=== PATIENT | male | born 1960 | race African-American/Black ===

== ENCOUNTER 2016-12-13 20:14 | Emergency (ER) | payer BC ==
[2016-12-13 21:11] VITALS: BP 124/86
--- NOTE | 2016-12-13 21:35 | UC ---
Complaint Male HPI - HPI Summary HPI Summary: Patient has a hx of kidney stones, currently having some left flank pain, hx of enlarged prostate, is complaining of pain with urination, not really buring just uncomfortable, feels bloated and is very sore in the lower abdominal region. - History of Current Complaint Chief Complaint: UCGU Stated Complaint: BACK PAIN, AND PAINFUL URINATION Time Seen by Provider: 12/13/16 21:14 Hx Obtained From: Patient Onset/Duration: Sudden Onset, Lasting Days Timing: Constant Severity Initially: Mild Severity Currently: Moderate Location: Suprapubic Character: Constant Pressure Aggravating Factor(s): Voiding, Palpation Alleviating Factor(s): Nothing Associated Signs And Symptoms: Positive: Back Pain, Fever, Hematuria, Dysuria - Risk Factors Testicular Torsion: Negative - Allergies/Home Medications Allergies/Adverse Reactions: Allergies Allergy/AdvReac Type Severity Reaction Status Date / Time No Known Allergies Allergy Verified 02/15/15 11:58 Home Medications: Home Medications Ibuprofen [Advil] 400 mg PO 12/13/16 [History] PMH/Surg Hx/FS Hx/Imm Hx Previously Healthy: Yes Endocrine History Of: Denies: Diabetes, Thyroid Disease Cardiovascular History Of: Denies: Cardiac Disorders, Hypertension Respiratory History Of: Reports: Asthma - exercise induced Denies: COPD GI/ History Of: Reports: Kidney Stones - 3/4 YRS AGO DX WITH K-STONES Denies: Ulcer, Renal Disease Cancer History Of: Denies: Prostate Cancer - Surgical History Surgical History: Yes Surgery Procedure, Year, and Place: facial fracture repaired- cheek - Family History Known Family History: Positive: Cardiac Disease, Hypertension, Diabetes, Other - prostate and colon CA - Social History Alcohol Use: None Substance Use Type: None Smoking Status (MU): Never Smoked Tobacco - Immunization History Most Recent Tetanus Shot: 20 years ago Review of Systems Constitutional: Fever, Chills, Fatigue Skin: Negative Eyes: Negative ENT: Negative Respiratory: Negative Cardiovascular: Negative Gastrointestinal: Abdominal Pain Genitourinary: Dysuria, Hematuria, Frequency Motor: Negative Neurovascular: Negative Musculoskeletal: Negative Neurological: Negative Psychological: Negative All Other Systems Reviewed And Are Negative: Yes Physical Exam Triage Information Reviewed: Yes Appearance: Well-Nourished, Ill-Appearing, Pain Distress Vital Signs: Initial Vital Signs Temp 99.1 F 12/13/16 21:07 Pulse 60 12/13/16 21:07 Resp 18 12/13/16 21:07 BP 124/86 12/13/16 21:07 Pulse Ox 100 12/13/16 21:07 Vital Signs Reviewed: Yes Eye Exam: Normal Eyes: Positive: Conjunctiva Clear ENT Exam: Normal ENT: Positive: Hearing grossly normal, Pharynx normal, Pharyngeal erythema, TMs normal Dental Exam: Normal Neck exam: Normal Neck: Positive: Supple, Nontender, No Lymphadenopathy Respiratory Exam: Normal Respiratory: Positive: Chest non-tender, Lungs clear, Normal breath sounds Cardiovascular Exam: Normal Cardiovascular: Positive: RRR, No Murmur, Pulses Normal Abdominal Exam: Other Abdomen Description: Positive: No Organomegaly, CVA Tenderness (L) - positive, Distended, Other: - Left upper and lower quad tenderness Bowel Sounds: Positive: Hypoactive Musculoskeletal Exam: Normal Musculoskeletal: Positive: Strength Intact, ROM Intact, No Edema Neurological Exam: Normal Neurological: Positive: Alert, Muscle Tone Normal Psychological Exam: Normal Skin Exam: Normal Complaint Male Course/Dx - Course Course Of Treatment: hx obtained, exam performed, mes reviewed, UA obtained, culture sent, rectal exam performed, prostate palpated and painful on exam. levaquin and toradol given, for flank pain. meds repscribed. recommend follow up with his PCP and urologist. - Differential Dx/Diagnosis Differential Diagnosis/HQI/PQRI: Cancer, Phimosis, Priaprism, Prostatitis, Testicular Torsion, Ureteral Calculi, Urinary Tract Infection Provider Diagnoses: prostatitis. abdominal pain. flank pain Discharge - Discharge Plan Condition: Stable Disposition: HOME Prescriptions: Levofloxacin TAB* [Levaquin TAB*] 500 mg PO DAILY #6 tab traMADol TAB* [Ultram*] 25 mg PO Q8H PRN #9 tab MDD 3 tabs PRN Reason: Pain Patient Education Materials: Prostatitis (ED) Referrals: Arielle Menjivar MD [Primary Care Provider] - Additional Instructions: 1. take the medication as prescribed, increase fluid intake 2. follow up with your primary provider in the next week. Urine culture was sent, we will call you if medications need to be changed.
[2016-12-13] MEDS ORDERED: Ketorolac INJ* 30 MG/ML 1 ML VIAL IM ONE (21:38)
[2016-12-13] MEDS ORDERED: Levofloxacin TAB* 500 MG PO ONE (21:40)
--- NOTE | 2016-12-13 22:32 | RAD ---
INDICATION: Left flank pain COMPARISON: CT June 26, 2016 TECHNIQUE: Noncontrast axial source images were acquired from the level hemidiaphragms to the symphysis pubis as part of CT imaging for renal stone. Lung bases: The lung bases are clear. Liver: The liver is normal in size. Noncontrast imaging shows no evidence of a hepatic mass or ductal dilatation. Gallbladder: There are no calcified gallstones. There is no evidence of wall thickening or pericholecystic fluid.. Spleen: The spleen is normal in size. The noncontrast CT appearance is normal. Pancreas: Noncontrast imaging shows no pancreatic mass or ductal dilitation. Adrenal glands: No masses are identified. Kidneys/Bladder: The noncontrast CT appearance the right kidney is normal. The left kidney appears swollen with perinephric stranding and moderate left-sided hydronephrosis and hydroureter. There is a 6 mm calculus within the urinary bladder. There are no other calcifications of urinary significance Adenopathy: There is no evidence of intraperitoneal or retroperitoneal adenopathy. Evaluation is limited without oral contrast. Fluid collections: There are no free or localized fluid collections. Vessels: The aorta and iliac vessels are normal in caliber. There are no significant atherosclerotic changes. The IVC appears normal Pelvic organs: The prostate is markedly enlarged GI tract: Evaluation of the bowel is limited without oral contrast. The stomach, small bowel, and lower GI tract appear grossly normal. There are no obstructive findings. The appendix is visualized and appears normal. Soft tissues: No soft tissue abnormalities of the extraperitoneal abdomen or pelvis are identified. Osseous structures: There are no acute osseous findings. IMPRESSION: 1. There is moderate left-sided hydronephrosis and hydroureter. A 6 mm calculus has passed into the bladder. 2. Marked prostatic enlargement.
[2016-12-13] MEDS ORDERED: traMADol TAB* 50 MG PO ONE ×2 (22:50)
== END 2016-12-13 22:37 | disposition home or self-care (01) ==
LOC: UCEAST 20:14
DX: N41.9 Inflammatory disease of prostate, unspecified (principal); J45.990 Exercise induced bronchospasm; R10.32 Left lower quadrant pain; Z87.442 Personal history of urinary calculi
CPT/HCPCS: 74176; 81003; 87086; 96372; 99212; A9270-GY; G0463; J1885

== ENCOUNTER 2018-09-17 12:56 | Emergency (ER) | payer BC ==
[2018-09-17 13:16] VITALS: BP 104/70
--- NOTE | 2018-09-17 13:52 | UC ---
Skin Complaint HPI - HPI Summary HPI Summary: The patient is a 58-year-old male who has noticed some swelling in his left occipital region 5-7 days. He is minimally tender. He denies any trauma. Denies any fever or chills. About one year ago he states he fell and hit his head in this region no LOC - History of Current Complaint Chief Complaint: UCHeadInjury Time Seen by Provider: 09/17/18 13:32 Stated Complaint: HEAD /NECK INJURY Hx Obtained From: Patient Onset/Duration: Gradual Onset, Lasting Days Skin Exposure Onset/Duration: Minutes Ago Timing: Constant Onset Severity: Mild Current Severity: Mild Pain Intensity: 4 Pain Scale Used: 0-10 Numeric Location: Discrete Character: Swelling, Raised Aggravating Factor(s): Touch Alleviating Factor(s): Nothing Associated Signs & Symptoms: Positive: Tenderness - Allergy/Home Medications Allergies/Adverse Reactions: Allergies Allergy/AdvReac Type Severity Reaction Status Date / Time lactose Allergy Vomiting Verified 09/17/18 13:17 meat Allergy Vomiting Uncoded 09/17/18 13:17 PMH/Surg Hx/FS Hx/Imm Hx Previously Healthy: Yes - Surgical History Surgical History: Yes Surgery Procedure, Year, and Place: facial fracture repaired- cheek - Family History Known Family History: Positive: Cardiac Disease, Hypertension, Diabetes, Other - prostate and colon CA - Social History Alcohol Use: None Substance Use Type: None Smoking Status (MU): Never Smoked Tobacco - Immunization History Most Recent Tetanus Shot: 20 years ago Review of Systems All Other Systems Reviewed And Are Negative: Yes Constitutional: Positive: Negative Skin: Positive: Negative Eyes: Positive: Negative ENT: Positive: Negative Respiratory: Positive: Negative Cardiovascular: Positive: Negative Gastrointestinal: Positive: Negative Genitourinary: Positive: Negative Motor: Positive: Negative Neurovascular: Positive: Negative Musculoskeletal: Positive: Negative Neurological: Positive: Negative Psychological: Positive: Negative Physical Exam Triage Information Reviewed: Yes Appearance: Well-Appearing, No Pain Distress, Well-Nourished Vital Signs: Initial Vital Signs Temp 99 F 09/17/18 13:08 Pulse 57 09/17/18 13:08 Resp 18 09/17/18 13:08 BP 104/70 09/17/18 13:08 Pulse Ox 100 09/17/18 13:08 Vital Signs Reviewed: Yes Eyes: Positive: Conjunctiva Clear, Other: - eomi/perrl ENT: Positive: Hearing grossly normal. Negative: Nasal congestion, Nasal drainage, Tonsillar swelling, Tonsillar exudate, Sinus tenderness, Uvula midline Neck: Positive: Supple, Nontender, No Lymphadenopathy Respiratory: Positive: Lungs clear, Normal breath sounds, No respiratory distress, No accessory muscle use Cardiovascular: Positive: RRR, No Murmur Musculoskeletal: Positive: ROM Intact, No Edema Neurological: Positive: Alert Psychological Exam: Normal Skin Exam: Other - see image Images Head: 1 - papule 2 - bogginess surrounding papule, mild tenderness, no fluctuance Course/Dx - Course Course Of Treatment: Patient request MRI. I informed him that I was unable to ting that request. Referred him to his PMD . Patient is unhappy that I am not able to definitively diagnosis his condition and states he will probably go to the ER. - Diagnoses Provider Diagnosis: Skin pustule Discharge - Sign-Out/Discharge Documenting (check all that apply): Patient Departure All imaging exams completed and their final reports reviewed: No Studies - Discharge Plan Condition: Stable Disposition: HOME Prescriptions: Cephalexin CAP* [Keflex CAP*] 500 mg PO QID #28 cap Patient Education Materials: Warm Compress or Soak (ED) Referrals: Arielle Menjivar MD [Primary Care Provider] - 1 Week Additional Instructions: I think the area of you scalp that feels boggy is due to an infection warm compresses recheck for new or worsening symptoms see your MD in about a week for recheck - Billing Disposition and Condition Condition: STABLE Disposition: Home
== END 2018-09-17 14:20 | disposition home or self-care (01) ==
LOC: UCEAST 12:56
DX: L08.9 Local infection of the skin and subcutaneous tissue, unspecified (principal)
CPT/HCPCS: 99211; G0463

== ENCOUNTER 2018-09-17 18:06 | Emergency (ER) | payer BC ==
[2018-09-17 22:36] VITALS: BP 110/72
--- NOTE | 2018-09-17 22:40 | ED ---
Neck Pain - HPI Summary HPI Summary: Patient is a 58-year-old male presenting to the ED with neck pain and head pain which began approximately 1 month ago. He states he believes he may have hit the base of his neck and/or head a month ago, but is unable to completely recall. He states he is concerned over swelling at the base of the neck and diffuse ISAAC intermittently 7/10 over the past month. He denies any confusion, memory loss. He denies any loss of consciousness or syncopal episodes over the past month. He is otherwise healthy, takes no medications and denies allergies. - History of Current Complaint Chief Complaint: EDHeadInjury Stated Complaint: HEAD INJURY Time Seen by Provider: 09/17/18 19:48 Hx Obtained From: Patient Timing: Lasting Hours Onset/Duration: Gradual Onset Severity Initially: Mild Severity Currently: None Pain Intensity: 5 Pain Scale Used: 0-10 Numeric Character: Aching Aggravating Factors: Nothing Alleviating Factors: Nothing Associated Signs & Symptoms: Positive: Negative - Risk Factors Meningitis Risk Factors: Negative - Allergies/Home Medications Allergies/Adverse Reactions: Allergies Allergy/AdvReac Type Severity Reaction Status Date / Time lactose Allergy Vomiting Verified 09/17/18 13:17 meat Allergy Vomiting Uncoded 09/17/18 13:17 PMH/Surg Hx/FS Hx/Imm Hx Previously Healthy: Yes Endocrine/Hematology History: Denies: Hx Diabetes, Hx Thyroid Disease Cardiovascular History: Denies: Hx Hypertension Respiratory History: Reports: Hx Asthma - exercise induced Denies: Hx Chronic Obstructive Pulmonary Disease (COPD) GI History: Denies: Hx Ulcer History: Reports: Hx Kidney Stones - 3/4 YRS AGO DX WITH K-STONES Denies: Hx Dialysis, Hx Renal Disease - Surgical History Surgery Procedure, Year, and Place: facial fracture repaired- cheek - Immunization History Hx Pertussis Vaccination: No Immunizations Up to Date: Yes - the Infectious Disease History: No Infectious Disease History: Denies: Hx Clostridium Difficile, Hx Hepatitis, Hx Human Immunodeficiency Virus (HIV), Hx of Known/Suspected MRSA, Hx Shingles, Hx Tuberculosis, Hx Known/ Suspected VRE, Hx Known/Suspected VRSA, History Other Infectious Disease, Traveled Outside the [place] in Last 30 Days - Family History Known Family History: Positive: Cardiac Disease, Hypertension, Diabetes, Other - prostate and colon CA - Social History Occupation: Employed Part-time Lives: Alone Alcohol Use: None Hx Substance Use: No Substance Use Type: Reports: None Hx Tobacco Use: No Smoking Status (MU): Never Smoked Tobacco Review of Systems Constitutional: Negative Negative: Fever, Chills, Fatigue, Skin Diaphoresis Negative: Epistaxis, Dental Pain Negative: Palpitations, Chest Pain Genitourinary: Negative Positive: no symptoms reported, see HPI Positive: Myalgia - isneck pain Negative: Rash, Bruising Positive: Headache All Other Systems Reviewed And Are Negative: Yes - unless Physical Exam Triage Information Reviewed: Yes Vital Signs On Initial Exam: Initial Vitals Temp Pulse Resp BP Pulse Ox 98.1 F 53 16 118/74 100 09/17/18 18:18 09/17/18 18:18 09/17/18 18:18 09/17/18 18:18 09/17/18 18:18 Vital Signs Reviewed: Yes Appearance: Positive: Well-Appearing, Well-Nourished Skin: Positive: Warm, Skin Color Reflects Adequate Perfusion Head/Face: Positive: Normal Head/Face Inspection Eyes: Positive: EOMI, MEJIA, Conjunctiva Clear Neck: Positive: Supple Respiratory/Lung Sounds: Positive: Clear to Auscultation, Breath Sounds Present Cardiovascular: Positive: RRR, Pulses are Symmetrical in both Upper and Lower Extremities. Negative: Leg Edema Left, Leg Edema Right Musculoskeletal: Positive: Pain @ - cervical spine tenderness Neurological: Positive: Speech Normal Psychiatric: Positive: Normal, Affect/Mood Appropriate AVPU Assessment: Alert Diagnostics - Vital Signs Vital Signs Temp Pulse Resp BP Pulse Ox 09/17/18 18:18 98.1 F 53 16 118/74 100 - Laboratory Lab Statement: Any lab studies that have been ordered have been reviewed, and results considered in the medical decision making process. Neck Course/Dx - Course Course Of Treatment: On physical examination, there is no evidence of diffuse swelling, however patient has tenderness to the cervical spine. There are no other physical findings on physical exam. Lungs CTA. RRR. Patient is alert and oriented x 3 and ambulating and speaking well. He denies sypmtoms currently. Denies any headache at this time. CT brain and CT cervical spine obtained. These are both negative for any acute findings. - Diagnoses Differential Dx/HQI/PQRI: Positive: Sprain, Strain Provider Diagnoses: Neck pain, Headache Discharge - Sign-Out/Discharge Documenting (check all that apply): Patient Departure - Discharge Plan Condition: Stable Disposition: HOME Referrals: Arielle Menjivar MD [Primary Care Provider] - Additional Instructions: Please see your PCP if symptoms worsen - Billing Disposition and Condition Condition: STABLE Disposition: Home
== END 2018-09-17 22:35 | disposition home or self-care (01) ==
LOC: ED 18:06
DX: M54.2 Cervicalgia (principal); R51 Headache
CPT/HCPCS: 70450; 72125; 99281

== ENCOUNTER 2019-05-06 23:08 | Emergency (ER) | payer BC ==
--- NOTE | 2019-05-06 23:48 | ED ---
GI/ HPI - HPI Summary HPI Summary: Patient with history of REZUM procedure performed 5 days ago in [place] by urologist Dr. Blackmon. Patient was discharged with Her, and had appointment this coming Thursday to remove catheter. Patient states he was told he could not move catheter and got uncomfortable. Patient states he attempted to remove catheter today, but states it stuck and no longer draining urine. Patient denies any symptoms other than discomfort in his penis from catheter. Denies other medical history. - History of Current Complaint Chief Complaint: EDUrogenitalProblems Time Seen by Provider: 05/06/19 23:47 Stated Complaint: TRIED TO PULL CATHER OUT AND IT WONT PER PT Hx Obtained From: Patient Onset/Duration: Started Hours Ago Severity: Severe Current Severity: Severe Pain Intensity: 8 Location of Pain: Other Additional Locations for Males: Penis Pain Characteristics: Cramping, Burning Associated Signs and Symptoms: Positive: Hematuria Aggravating Factor(s): Nothing Alleviating Factor(s): Nothing - Allergy/Home Medications Allergies/Adverse Reactions: Allergies Allergy/AdvReac Type Severity Reaction Status Date / Time lactose Allergy Vomiting Verified 05/07/19 00:04 meat Allergy Vomiting Uncoded 05/07/19 00:04 PMH/Surg Hx/FS Hx/Imm Hx Endocrine/Hematology History: Denies: Hx Diabetes, Hx Thyroid Disease Cardiovascular History: Denies: Hx Hypertension Respiratory History: Reports: Hx Asthma - exercise induced Denies: Hx Chronic Obstructive Pulmonary Disease (COPD) GI History: Denies: Hx Ulcer History: Reports: Hx Kidney Stones - 3/4 YRS AGO DX WITH K-STONES Denies: Hx Dialysis, Hx Renal Disease Sensory History: Denies: Hx Legally Blind Opthamlomology History: Denies: Hx Eye Prosthesis EENT History: Denies: Hx Deafness Neurological History: Denies: Hx Dementia Psychiatric History: Denies: Hx Autism - Surgical History Surgery Procedure, Year, and Place: facial fracture repaired- cheek Infectious Disease History: No Infectious Disease History: Denies: Hx Clostridium Difficile, Hx Hepatitis, Hx Human Immunodeficiency Virus (HIV), Hx of Known/Suspected MRSA, Hx Shingles, Hx Tuberculosis, Hx Known/ Suspected VRE, Hx Known/Suspected VRSA, History Other Infectious Disease, Traveled Outside the [place] in Last 30 Days - Family History Known Family History: Positive: Cardiac Disease, Hypertension, Diabetes, Other - prostate and colon CA - Social History Alcohol Use: None Hx Substance Use: No Substance Use Type: Reports: None Hx Tobacco Use: No Smoking Status (MU): Never Smoked Tobacco Review of Systems Constitutional: Negative Eyes: Negative ENT: Negative Cardiovascular: Negative Respiratory: Negative Gastrointestinal: Negative Positive: hematuria, pain Musculoskeletal: Negative Skin: Negative Neurological: Negative Psychological: Normal All Other Systems Reviewed And Are Negative: Yes Physical Exam - Summary Physical Exam Summary: Blood noted in urine and catheter tubing and bag. Exam of catheter and genitalia otherwise unremarkable. Triage Information Reviewed: Yes Vital Signs On Initial Exam: Initial Vitals Temp Pulse Resp BP Pulse Ox 96.5 F 47 15 123/89 99 05/06/19 23:10 05/06/19 23:10 05/06/19 23:10 05/06/19 23:10 05/06/19 23:10 Vital Signs Reviewed: Yes Appearance: Positive: Well-Appearing Skin: Positive: Warm Head/Face: Positive: Normal Head/Face Inspection Eyes: Positive: Normal Neck: Positive: Supple Respiratory/Lung Sounds: Positive: Clear to Auscultation Cardiovascular: Positive: Normal Abdomen Description: Positive: Nontender Male Genital Exam: Positive: Normal Genitalia Musculoskeletal: Positive: Normal Neurological: Positive: Normal Psychiatric: Positive: Normal AVPU Assessment: Alert - Kathia Coma Scale Best Eye Response: 4 - Spontaneous Best Motor Response: 6 - Obeys Commands Best Verbal Response: 5 - Oriented Coma Scale Total: 15 Diagnostics - Vital Signs Vital Signs Temp Pulse Resp BP Pulse Ox 05/06/19 23:10 96.5 F 47 15 123/89 99 - Laboratory Lab Statement: Any lab studies that have been ordered have been reviewed, and results considered in the medical decision making process. GIGU Course/Dx - Course Course Of Treatment: Patient with history of REZUM procedure performed 5 days ago in [place] by urologist Dr. Blackmon. Patient was discharged with Her, and had appointment this coming Thursday to remove catheter. Patient states he was told he could not move catheter and got uncomfortable. Patient states he attempted to remove catheter today, but states it stuck and no longer draining urine. Patient denies any symptoms other than discomfort in his penis from catheter. Denies other medical history. Vital signs within normal limits. Catheter removed by nurse. Patient urinated on is out of the bathroom, stated he produced a very small amount. Bladder scan shows 247 mL postvoid. Patient urinated twice more in small amounts. Patient refused new catheter. Advised patient to have low threshold for returning to the ER in [place] for symptoms relating to urinary retention. [place] urologist in [place]. Patient states he understands unopposable plan. Negative. Patient currently taking antibiotics for postprocedure. - Diagnoses Provider Diagnoses: Encounter for Madrigal catheter removal Discharge ED - Sign-Out/Discharge Documenting (check all that apply): Patient Departure Patient Received Moderate/Deep Sedation with Procedure: No - Discharge Plan Condition: Stable Disposition: HOME Patient Education Materials: Madrigal Catheter Placement and Care (ED) Referrals: Arielle Menjivar MD [Primary Care Provider] - Additional Instructions: Follow-up with your urologist for further evaluation. Return to the ED for any new or worsening symptoms. - Billing Disposition and Condition Condition: STABLE Disposition: Home
[2019-05-07 01:17] LABS: Urine Appearance Clear; Urine Bacteria Absent (Absent); Urine Bilirubin Negative (Negative); Urine Blood 3+ (Negative); Urine Glucose Negative (Negative); Urine Ketones Negative (Negative); Urine Nitrite Negative (Negative); Urine Protein 1+(30 mg/dL) (Negative); Urine Red Blood Cell Trace(0-2/hpf) (Absent); Urine Specific Gravity 1.001 (1.010-1.030); Urine Urobilinogen Negative (Negative); Urine White Blood Cell Trace(0-5/hpf) (Absent)
[2019-05-07 01:18] LABS: Urine Color Red
[2019-05-07 01:34] VITALS: BP 117/76
== END 2019-05-07 01:34 | disposition home or self-care (01) ==
LOC: ED 23:08
DX: Z46.6 Encounter for fitting and adjustment of urinary device (principal); N48.89 Other specified disorders of penis; R31.9 Hematuria, unspecified; Z91.011 Allergy to milk products; Z91.018 Allergy to other foods
CPT/HCPCS: 81003; 81015; 87086; 99283

== ENCOUNTER 2019-06-23 09:07 | Emergency (ER) | payer BC ==
[2019-06-23 09:33] VITALS: BP 128/87
--- NOTE | 2019-06-23 10:22 | UC ---
Shortness of Breath HPI - HPI Summary HPI Summary: CHIEF COMPLAINT and HPI: This is a 59-year-old -[place] male who comes to the care center with multiple complaints, but chiefly the feeling of intermittent shortness of breathand weakness. The patient states that this is an intermittent recurring symptom lasting as long as 2 hours over the last couple of weeks. He feels as if he can't take a full breath. the patient expresses concerns about pulmonary embolus. He states that he does have a distant history of asthma and had recently after exercise. He was wheezing. He has been seen in the past for head injury and cough. The patient is Vegan and does not drink and is a nonsmoker. He also has complaints of a stomach that is "cramping" and burning pain intermittently down his right leg. He also complains of a previous left lumbar injury. The patient denies chest painand denies shortness of breath as he sits in the urgent care center. Patient appears anxious. VITAL SIGNS & SaO2 REVIEWED. Within normal limits unless noted here. NURSES NOTE REVIEWED."c/o dizziness on and off for a few months. C/o SOB on and off. C/o cough on and off. Increase in weakness. PT reports he is very active and when he runs he becomes short of breath" - History of Current Complaint Chief Complaint: UCDizziness Stated Complaint: SOB Time Seen by Provider: 06/23/19 09:31 Hx Obtained From: Patient - Allergy/Home Medications Allergies/Adverse Reactions: Allergies Allergy/AdvReac Type Severity Reaction Status Date / Time lactose Allergy Vomiting Verified 06/23/19 09:45 meat Allergy Vomiting Uncoded 06/23/19 09:45 PMH/Surg Hx/FS Hx/Imm Hx - Additional Past Medical History Additional PMH: PAST MEDICAL HISTORY- CHRONIC and RECURRENT HEALTH PROBLEM LIST REVIEWED. Information relevant to present complaint: VISIT HISTORY REVIEWED: MEDICATIONS & ALLERGIES REVIEWED. HYPERTENSION STATUS: FAMILY HISTORY: Positive for: hypertension, cardiovascular disease, stroke, diabetes, cancer. Patient denies family history of: hypertension, cardiovascular disease, stroke, diabetes, cancer. SOCIAL HISTORY: non-smoker, lives , and works as a . Previously Healthy: Yes - Surgical History Surgical History: Yes Surgery Procedure, Year, and Place: facial fracture repaired- cheek - Family History Known Family History: Positive: Cardiac Disease, Hypertension, Diabetes, Other - prostate and colon CA - Social History Alcohol Use: None Substance Use Type: None Smoking Status (MU): Never Smoked Tobacco - Immunization History Most Recent Tetanus Shot: 20 years ago Review of Systems All Other Systems Reviewed And Are Negative: Yes Constitutional: Positive: Negative Respiratory: Positive: Shortness Of Breath Cardiovascular: Positive: Negative Gastrointestinal: Positive: Negative Genitourinary: Positive: Negative Psychological: Positive: Anxious Is Patient Immunocompromised?: No Physical Exam - Summary Physical Exam Summary: Appearance: The patient is well-appearing, is in no pain or distress, and is well-nourished. Eyes: Conjunctiva are clear. Pupils are equal and reactive to light and accommodation. Extra ocular muscle movement is intact. ENT: The hearing is grossly normal, the pharynx is normal, and the TMs are normal. There is no muffled or hoarse voice. No stridor. Neck: The neck is supple and there is no lymphadenopathy. Respiratory: The chest is non-tender to palpation and without crepitus. The lungs are clear, there are normal breath sounds, and there is no respiratory distress. No wheezes, rales or rhonchi. Cardiovascular: Heart sounds reveal a regular rate and rhythm. There are no clicks, rubs or murmurs. There are no carotid bruits or thrills. Circulation is grossly intact. Abdomen: The abdomen is soft and nontender. There is no organomegaly. Bowel sounds are present and within normal limits. No point tenderness at McBurneys point. No CVA tenderness. Musculoskeletal: Strength is intact. The patient moves all extremities. . No lower extremity swelling. Neurological: The patient is alert. Motor and sensory are examination grossly intact. Speech is normal. Psychological: The patient displays age appropriate behavior, and is conversant. GCS=15. Skin: Negative for rashes. Triage Information Reviewed: Yes Vital Signs: Initial Vital Signs Temp 99.4 F 06/23/19 09:23 Pulse 60 06/23/19 09:23 Resp 18 06/23/19 09:23 BP 128/87 06/23/19 09:23 Pulse Ox 100 06/23/19 09:23 Shortness of Breath Dx - Course Course Of Treatment: This is a 59-year-old -[place] male who comes to the [facility] with multiple complaints, but chiefly the feeling of intermittent shortness of breath and weakness. The patient states that this is an intermittent recurring symptom lasting as long as 2 hours over the last couple of weeks. He feels as if he can't take a full breath. the patient expresses concerns about pulmonary embolus. He states that he does have a distant history of asthma and had recently after exercise. He was wheezing. He has been seen in the past for head injury and cough. The patient is Vegan and does not drink and is a nonsmoker. He also has complaints of a stomach that is "cramping" and burning pain intermittently down his right leg. He also complains of a previous left lumbar injury. The patient denies chest painand denies shortness of breath as he sits in the urgent care center. Patient appears anxious. physical examination shows a healthy-appearing energetic male. His lungs are clear and there is no point tenderness with palpation. His cardiovascular exam shows a regular rate and rhythm. His EKG shows a sinus bradycardia with nonspecific ST- T changes but no acute ischemia. His chest x-ray was negative for abnormality. The patient was very concerned about pulmonary embolus and I spent time explaining both what he might look for and how they might evaluate this at the emergency department. There is no significant contributory factors to pulmonary embolus at this time. My diagnosis is intermittent shortness of breath, exercise-induced bronchospasm, and anxiety. of note is that the patient is low probability by Well's criteria. The patient was reassured. When we decided to obtain his blood specifically a CBC and a CMP as well as a TSH. - Differential Dx/Diagnosis Differential Diagnosis/HQI/PQRI: Bronchitis, Chest Wall Pain, Pneumothorax, Pulmonary Embolism, Unstable Angina, Other - anxiety Provider Diagnosis: Shortness of breath Discharge ED - Sign-Out/Discharge Documenting (check all that apply): Patient Departure All imaging exams completed and their final reports reviewed: Yes - Discharge Plan Condition: Stable Disposition: HOME Prescriptions: Albuterol HFA INHALER* [Ventolin HFA Inhaler*] 1 - 2 puff INH Q4H #1 mdi MDD 8 puffs a day Inhaler, Assist Devices [Aerochamber Mv] 1 mis XX Q6HR #1 mis Patient Education Materials: Dyspnea (ED) Referrals: Arielle Menjivar MD [Primary Care Provider] - Additional Instructions: WE DISCUSSED: PLEASE SEEK CARE AT THE EMERGENCY DEPARTMENT IF SYMPTOMS WORSEN OR IF NEW SYMPTOMS DEVELOP. if you have increasing and continuing shortness of breath, if you faint or cannot walk. Go directly to the emergency department. FOLLOW UP WITH YOUR PRIMARY CARE PHYSICIAN IF CONDITION CONTINUES BEYOND 5 DAYS WITHOUT IMPROVEMENT. Your primary care physician can arrange various tests, as needed. Your blood has been drawn to see if there are any abnormalities. Your chest x- ray and EKG were within normal limits. You do have a slow heart rate. YOUR DIAGNOSIS IS: intermittent shortness of breath, wheezing. YOUR PRESCRIPTION RECOMMENDATION IS: Albuterol plus a spacer. Use this if your exercising and develop wheezing or shortness of breath. OTHER INSTRUCTIONS:Call for your blood results in 2-3 days. Hypertension Discharge Instructions: Your blood pressure reading today was 128/87, slightly above 120/80. Recheck your blood pressure over the next month. FOR PAIN AND/OR SLEEP: For pain: Ibuprofen (Motrin and other brand names) 400-600mg PLUS acetaminophen (Tylenol and other brand names) 500mg - 1000mg every 8 hours. For vomiting or inability to sleep take diphenhydramine, Benadryl. - Billing Disposition and Condition Condition: STABLE Disposition: Home
[2019-06-23 13:45] LABS: ABS Eosinophils 0.2 10^3/ul (0-0.6); ABS Lymphocytes 1.4 10^3/ul (1.0-4.8); ABS Monocytes 0.4 10^3/ul (0-0.8); ABS Neutrophils 2.3 10^3/ul (1.5-7.7); Eosinophil % 4.1 %; Hematocrit 47 % (42-52); Hemoglobin 15.4 g/dL (14.0-18.0); Mean Corpuscular HGB Conc 33 g/dL (31-36); Mean Corpuscular Hemoglobin 28 pg (27-31); Mean Corpuscular Volume 85 fL (80-94); Mean Platelet Volume 8.3 fL (7.4-10.4); Nucleated Red Blood Cells % 0.1; Platelet Count 219 10^3/uL (150-450); Red Blood Count 5.48 10^6 /uL (4.18-5.48); Red Cell Distribution Width 14 % (10-15); White Blood Count 4.3 10^3/uL (3.5-10.8)
[2019-06-23 14:17] LABS: TSH (Thyroid Stimulating Horm) 1.85 mcIU/mL (0.34-5.60)
[2019-06-23 14:44] LABS: Albumin 4.4 g/dL (3.2-5.2); Calcium 9.8 mg/dL (8.6-10.3); Potassium 4.6 mmol/L (3.5-5.0); Total Bilirubin 0.7 mg/dL (0.2-1.0)
[2019-06-23 14:50] LABS: Albumin/Globulin Ratio 1.5 (1-3); BUN/Creatinine Ratio 7.2 (8-20); EGFR African American 81.8 (>60); EGFR Non-African American 67.6 (>60); Globulin 2.9 g/dL (2-4); Total Protein 7.3 g/dL (6.4-8.9)
== END 2019-06-23 11:19 | disposition home or self-care (01) ==
LOC: UCEAST 09:07
DX: R06.02 Shortness of breath (principal); R53.1 Weakness; R00.1 Bradycardia, unspecified; J45.990 Exercise induced bronchospasm; F41.9 Anxiety disorder, unspecified; Z91.011 Allergy to milk products; Z91.018 Allergy to other foods
CPT/HCPCS: 36415; 71046; 80053; 84443; 85025; 93005; 99212; G0463

== ENCOUNTER 2019-11-21 17:34 | Emergency (ER) | payer BC ==
[2019-11-21 18:24] VITALS: BP 110/60
--- NOTE | 2019-11-21 19:29 | UC ---
Knee Pain HPI - HPI Summary HPI Summary: 59-year-old male comes in with chief complaint of left knee left hip pain. 4 days ago he was skateboarding and he fell off the skateboard striking the medial aspect of his left knee and also he felt his lower leg abducted at the knee joint. He also has pain in his left iliac crest after the fall. Pain in the knee is worse with ambulation. Overall the pain has decreased since the accident. Denies any laxity in the knee. Patient also reports dental pain right posterior molar feels like his infection. - History of Current Complaint Chief Complaint: UCLowerExtremity Stated Complaint: ACL ISSUE Time Seen by Provider: 11/21/19 18:33 Pain Intensity: 4 - Allergies/Home Medications Allergies/Adverse Reactions: Allergies Allergy/AdvReac Type Severity Reaction Status Date / Time lactose Allergy Vomiting Verified 11/21/19 18:24 meat Allergy Vomiting Uncoded 11/21/19 18:24 Home Medications: Home Medications Amoxicillin PO (*) [Amoxicillin 500 MG CAP*] 500 mg PO TID #30 cap 11/21/19 [Rx] Ibuprofen TAB* [Advil TAB*] 200 mg PO Q6H PRN 11/21/19 [History Confirmed ] PMH/Surg Hx/FS Hx/Imm Hx Previously Healthy: Yes - Surgical History Surgical History: Yes Surgery Procedure, Year, and Place: facial fracture repaired- cheek - Family History Known Family History: Positive: Cardiac Disease, Hypertension, Diabetes, Other - prostate and colon CA - Social History Alcohol Use: None Substance Use Type: None Smoking Status (MU): Never Smoked Tobacco - Immunization History Most Recent Tetanus Shot: 20 years ago Review of Systems All Other Systems Reviewed And Are Negative: Yes Constitutional: Positive: Negative Skin: Positive: Negative Eyes: Positive: Negative ENT: Positive: Dental Pain Respiratory: Positive: Negative Cardiovascular: Positive: Negative Gastrointestinal: Positive: Negative Motor: Positive: Other - SEE HPI Neurovascular: Positive: Negative Musculoskeletal: Positive: Other: - SEE HPI Neurological/Mental Status: Positive: Negative Psychological: Positive: Negative Is Patient Immunocompromised?: No Physical Exam Triage Information Reviewed: Yes Appearance: Well-Appearing, No Pain Distress, Well-Nourished Vital Signs: Initial Vital Signs Temp 97.9 F 11/21/19 18:17 Pulse 54 11/21/19 18:17 Resp 16 11/21/19 18:17 BP 110/60 11/21/19 18:17 Pulse Ox 100 11/21/19 18:17 Vital Signs Reviewed: Yes Eye Exam: Normal Eyes: Positive: Conjunctiva Clear Dental: Positive: Gross Decay/Caries @ - Right lower posterior Neck: Positive: Supple Respiratory: Positive: No respiratory distress Musculoskeletal: Positive: Other: - Mild tenderness to palpation over the left iliac crest. Left knee is tender to palpation on the medial aspect of the joint. There is some pain with Kobe's. No laxity. Anterior lateral and posterior all nontender to palpation. No effusion appreciated. Neurological: Positive: Alert Psychological: Positive: Age Appropriate Behavior Skin Exam: Normal Knee Pain Course/Dx - Course Course Of Treatment: I discussed the x-rays with the patient I do not appreciate any fracture radiologist reading is pending. Patient is placed by nursing patient has intact after placement of the Reji wrap. Patient will ice use anti- inflammatories weightbearing as tolerated and follow-up with sports medicine. For his dental infection we will treat with amoxicillin. Follow-up with dentist. - Differential Dx/Diagnosis Provider Diagnosis: Left knee pain, Dental infection Discharge ED - Sign-Out/Discharge Documenting (check all that apply): Patient Departure All imaging exams completed and their final reports reviewed: No - Discharge Plan Condition: Stable Disposition: HOME Prescriptions: Amoxicillin PO (*) [Amoxicillin 500 MG CAP*] 500 mg PO TID #30 cap Patient Education Materials: Knee Pain (ED), Toothache (ED) Referrals: Arielle Menjivar MD [Primary Care Provider] - [facility] [Provider Group] Additional Instructions: FOLLOW UP WITH SPORTS MEDICINE AND YOUR DENTIST. GET REEVALUATED SOONER IF NOT IMPROVED OR WORSE OR ANY QUESTIONS OR CONCERNS. - Billing Disposition and Condition Condition: STABLE Disposition: Home
--- NOTE | 2019-11-22 09:57 | UC ---
- Progress Note Progress Note: XR wet read correct Course/Dx - Diagnoses Provider Diagnoses: Left knee pain, Dental infection Discharge ED - Sign-Out/Discharge Documenting (check all that apply): Post-Discharge Follow Up All imaging exams completed and their final reports reviewed: Yes - Discharge Plan Condition: Stable Disposition: HOME Prescriptions: Amoxicillin PO (*) [Amoxicillin 500 MG CAP*] 500 mg PO TID #30 cap Patient Education Materials: Knee Pain (ED), Toothache (ED) Referrals: [facility] [Provider Group] Arielle Menjivar MD [Primary Care Provider] - Additional Instructions: FOLLOW UP WITH SPORTS MEDICINE AND YOUR DENTIST. GET REEVALUATED SOONER IF NOT IMPROVED OR WORSE OR ANY QUESTIONS OR CONCERNS. - Billing Disposition and Condition Condition: STABLE Disposition: Home
== END 2019-11-21 19:58 | disposition home or self-care (01) ==
LOC: UCEAST 17:34
DX: M25.552 Pain in left hip (principal); M25.562 Pain in left knee; K04.7 Periapical abscess without sinus; Z91.040 Latex allergy status; Z91.018 Allergy to other foods; V00.131A Fall from skateboard, initial encounter; Y93.51 Activity, roller skating (inline) and skateboarding; Y92.9 Unspecified place or not applicable
CPT/HCPCS: 99212; G0463